=== PATIENT | male | born 2000 | race African-American/Black ===

== ENCOUNTER 2019-07-03 20:53 | Emergency (ER) | payer MEDICAID ==
[~2019-07-03] VITALS: Ht 188 cm; Wt 127.0 kg
[2019-07-03] MEDS ORDERED: SODIUM CHLORIDE 0.9% 1,000 ML IV ONE (23:01)
[2019-07-03] MEDS ORDERED: ONDANSETRON HCL 4MG/2ML INJ IV STA (23:01)
[2019-07-03] MEDS ORDERED: MORPHINE SULFATE 4 MG/ML CPJ (NOT FOR IM USE) IV STA (23:01)
[2019-07-03] MEDS ORDERED: FAMOTIDINE 20MG/2ML VIAL IV ONE (23:15)
[2019-07-03 23:31] LABS: BASOPHILS % 0.3 % (0.0-2.0); EOSINOPHILS % 0.2 % (0.0-5.0); HEMATOCRIT. 47.3 % (42.0-52.0); HEMOGLOBIN. 16.2 g/dL (14.0-18.0); LYMPHOCYTES % 14.1 % (20.0-50.0); MEAN CORPUSCULAR HEMOGLOBIN 29.7 pg (28.0-32.0); MONOCYTES % 9.2 % (2.0-8.0); NEUTROPHILS % 76.2 % (40.0-76.0); PLATELET 203 x1000/uL (130-400); RED BLOOD CELL COUNT 5.44 mill/uL (4.7-6.1); RED CELL DISTRIBUTION WIDTH 14.4 % (11.6-14.6)
[2019-07-03 23:35] LABS: CHLORIDE 102 mEq/L (98-107)
[2019-07-03 23:39] LABS: ETHANOL BLOOD < 10 mg/dL
[2019-07-04 00:19] LABS: *AMPHETAMINES SCREEN URINE NEGATIVE (NEGATIVE); *BARBITURATES SCREEN URINE NEGATIVE (NEGATIVE); *BENZODIAZEPINES SCREEN URINE NEGATIVE (NEGATIVE); *COCAINE SCREEN URINE NEGATIVE (NEGATIVE); METHADONE URINE SCREEN NEGATIVE (NEGATIVE); OPIATES URINE SCREEN NEGATIVE (NEGATIVE)
[2019-07-04 00:20] LABS: CANNABINOID URINE SCREEN PRESUMTIVE POSITIVE (NEGATIVE); PHENCYCLIDINE URINE SCREEN NEGATIVE (NEGATIVE)
[2019-07-04 01:46] VITALS: BP 115/72
== END 2019-07-04 01:50 | disposition home or self-care (01) ==
LOC: ER 20:53
DX: R10.13 Epigastric pain (principal); R19.7 Diarrhea, unspecified; R11.2 Nausea with vomiting, unspecified
CPT/HCPCS: 36415; 74176; 80053; 80305; 80320; 83690; 84484; 85025; 96361; 96374; 96375; 99284; J2270; J2405; J3490; J7030; G0480

== ENCOUNTER 2019-10-05 02:03 | Emergency (ER) | payer MEDICAID, OTHER ==
[~2019-10-05] VITALS: Ht 188 cm; Wt 109.0 kg
[2019-10-05 02:36] VITALS: BP 136/86
[2019-10-05] MEDS ORDERED: LIDOCAINE HCL/PF 1% 10 MG/ML 5ML VIAL IJ ONE (02:45)
[2019-10-05] MEDS ORDERED: CEFTRIAXONE SODIUM 250 MG/VIAL IM ONE (02:45)
[2019-10-05] MEDS ORDERED: AZITHROMYCIN 500 MG TABLET PO ONE (02:45)
[2019-10-05 03:04] LABS: CLARITY URINE CLOUDY (CLEAR); COLOR URINE DARK YELLOW (YELLOW); KETONES URINE TRACE (NEGATIVE); LEUKOCYTE ESTERASE URINE 3+ (NEGATIVE); NITRITE URINE NEGATIVE (NEGATIVE); OCCULT BLOOD URINE TRACE (NEGATIVE); PROTEIN URINE 1+ (NEGATIVE); SPECIFIC GRAVITY URINE 1.035 (1.005-1.030)
[2019-10-07 04:11] LABS: NEISSERIA GONORRHOEAE NAA Positive (Negative)
== END 2019-10-05 03:21 | disposition home or self-care (01) ==
LOC: ER 02:03
DX: N48.89 Other specified disorders of penis (principal); N39.0 Urinary tract infection, site not specified; Z20.2 Contact with and (suspected) exposure to infections with a predominantly sexual mode of transmission; Z72.51 High risk heterosexual behavior; R03.0 Elevated blood-pressure reading, without diagnosis of hypertension
CPT/HCPCS: 81003; 87077; 87086; 87491; 87591; 96372; 99283; J0696; J3490

== ENCOUNTER 2021-01-11 05:25 | Emergency (ER) | payer MEDICAID, OTHER ==
[~2021-01-11] VITALS: Ht 188 cm; Wt 126.0 kg
[2021-01-11] MEDS ORDERED: CEFTRIAXONE SODIUM 500 MG/VIAL IM ONE (06:15)
[2021-01-11] MEDS ORDERED: PENICILLIN G BENZATHINE 2,400,000 UNITS/4ML SYR IM ONE (06:15)
[2021-01-11] MEDS ORDERED: DOXY100C2 MT (06:36)
[2021-01-11 07:35] VITALS: BP 123/67
[2021-01-13 04:07] LABS: NEISSERIA GONORRHOEAE NAA Negative (Negative)
== END 2021-01-11 07:38 | disposition home or self-care (01) ==
LOC: ER 05:25
DX: Z20.2 Contact with and (suspected) exposure to infections with a predominantly sexual mode of transmission (principal)
CPT/HCPCS: 86592; 86703; 87491; 87591; 96372; 99284; J0561; J0696

== ENCOUNTER 2021-01-29 11:40 | Emergency (ER) | payer MEDICAID ==
[~2021-01-29] VITALS: Ht 188 cm; Wt 128.0 kg
[~2021-01-29 11:40] MED LIST: DOXY100C5 MT
[2021-01-29 11:57] VITALS: BP 155/70
[2021-01-29] MEDS ORDERED: FLUORESCEIN SODIUM 1MG/STRIP LEFTEYE ONE (13:00)
[2021-01-29] MEDS ORDERED: TETRACAINE 0.5% OPHTH DROPS 4ML LEFTEYE ONE (13:00)
[2021-01-29] MEDS ORDERED: POLY10DR LEFTEYE (13:34)
== END 2021-01-29 14:14 | disposition home or self-care (01) ==
LOC: ER 11:40
DX: H10.9 Unspecified conjunctivitis (principal)
CPT/HCPCS: 99283

== ENCOUNTER 2021-02-28 02:05 | Emergency (ER) | payer MEDICAID, OTHER ==
[~2021-02-28] VITALS: Ht 188 cm; Wt 123.0 kg
[~2021-02-28 02:05] MED LIST changes: +POLY10DR LEFTEYE
[2021-02-28] MEDS ORDERED: KETOROLAC 30MG/ML VIAL IV STA (03:13)
[2021-02-28] MEDS ORDERED: ONDANSETRON HCL 4MG/2ML INJ IV STA (03:13)
[2021-02-28] MEDS ORDERED: SODIUM CHLORIDE 0.9% 1,000 ML IV ONE (03:15)
[2021-02-28 03:39] LABS: CHLORIDE 109 mEq/L (98-107)
[2021-02-28 03:43] LABS: BASOPHILS % 0.6 % (0.0-2.0); EOSINOPHILS % 0.5 % (0.0-5.0); HEMATOCRIT. 45.7 % (42.0-52.0); HEMOGLOBIN. 15.3 g/dL (14.0-18.0); LYMPHOCYTES % 22.5 % (20.0-50.0); MEAN CORPUSCULAR HEMOGLOBIN 28.8 pg (28.0-32.0); MEAN PLATELET VOLUME 7.8 fl (7.4-10.4); MONOCYTES % 11.4 % (2.0-8.0); PLATELET 173 x1000/uL (130-400); RED BLOOD CELL COUNT 5.32 mill/uL (4.7-6.1); RED CELL DISTRIBUTION WIDTH 14.7 % (11.6-14.6)
[2021-02-28 05:06] LABS: CLARITY URINE CLEAR (CLEAR); COLOR URINE YELLOW (YELLOW); KETONES URINE TRACE (NEGATIVE); LEUKOCYTE ESTERASE URINE NEGATIVE (NEGATIVE); NITRITE URINE NEGATIVE (NEGATIVE); OCCULT BLOOD URINE NEGATIVE (NEGATIVE); PH URINE 5.5 (4.5-8.0); PROTEIN URINE TRACE (NEGATIVE); SPECIFIC GRAVITY URINE 1.022 (1.005-1.030); UROBILINOGEN URINE 0.2 E.U./dL (0.2-1.0)
[2021-02-28] MEDS ORDERED: NAP5EC MT (05:27)
[2021-02-28] MEDS ORDERED: FAMO-135 MT (05:27)
[2021-02-28 05:35] VITALS: BP 125/72
== END 2021-02-28 05:36 | disposition home or self-care (01) ==
LOC: ER 02:05
DX: R10.13 Epigastric pain (principal); R51.9 Headache, unspecified
CPT/HCPCS: 36415; 80053; 81003; 83690; 85025; 96361; 96374; 96375; 99284; J1885; J2405; J7030

== ENCOUNTER 2021-03-03 12:04 | Emergency (ER) | payer OTHER ==
[~2021-03-03] VITALS: Ht 188 cm; Wt 124.0 kg
[~2021-03-03 12:04] MED LIST changes: +FAMO-135 MT; +NAP5EC MT
[2021-03-03 12:10] VITALS: BP 160/76
[2021-03-03] MEDS ORDERED: NAPR-681 MT (13:16)
[2021-03-03] MEDS ORDERED: METH-653 MT (13:16)
== END 2021-03-03 14:10 | disposition home or self-care (01) ==
LOC: ER 12:04
DX: S39.012A Strain of muscle, fascia and tendon of lower back, initial encounter (principal); X58.XXXA Exposure to other specified factors, initial encounter; Y93.89 Activity, other specified; Y92.89 Other specified places as the place of occurrence of the external cause; Y99.8 Other external cause status
CPT/HCPCS: 99281